=== PATIENT | female | born 1945 | race Caucasian/White ===

== ENCOUNTER 2017-09-15 23:27 | Inpatient (IN) | payer MEDICARE, BC, SELFPAY ==
[2017-09-15 23:40] VITALS: BP 152/88; PULSE 116; RESP 30; TEMP 36.6; O2SAT 96
[2017-09-15] MEDS: methylPREDNISolone 125 MG/2 ML VIAL IV (23:45)
[2017-09-15] MEDS: ALBUTEROL/IPRATROPIUM 3 ML AMPUL INH (23:47)
[2017-09-15 23:49] VITALS: PULSE 115; RESP 26; O2SAT 94
[2017-09-15 23:52] VITALS: PULSE 115; RESP 22
[2017-09-15] MEDS: ALBUTEROL 2.5 MG/3 ML NEB INH ×3 (23:53→23:55)
[2017-09-16] VITALS (14 sets, daily range): BP systolic 96–150; BP diastolic 49–89; PULSE 79–111; RESP 10–40; TEMP 36.8–37.9; O2SAT 91–100; BMI 19.1
--- NOTE | 2017-09-16 | DI.RAD.S_ITS ---
PROCEDURE: XR KUB INDICATIONS: persistent abdominal pain TECHNIQUE: One view of the abdomen acquired. COMPARISON: [facility], CR, XR CHEST 1V, 09/16/2017, 1:11. [facility], CT, CHEST/ABD/PEL WITH CONTRAST, 07/10/2017, 12:55. None. FINDINGS: Surgical changes and devices: None. Bowel: Bowel gas pattern is normal. Soft tissues: No suspicious abdominal calcifications. Visualized solid organ contours appear normal in size. Bones: No suspicious bony lesions. Moderate convex right scoliosis, previously present IMPRESSION: Nonspecific bowel gas pattern. Moderate convex right with scoliosis previously present. Depending on the clinical status followup by CT scanning may become necessary. Dictated by: Adrian Burden M.D. on 09/16/2017 at 10:09 Approved by: Adrian Burden M.D. on 09/16/2017 at 10:09
--- NOTE | 2017-09-16 | PC.NURSE ---
arrives on home o2 at 3l, states worsening soa today without relief from prns and prednisone rx, tight lung sounds throughout, limited air movement, labored resp, tripod position, denies cp/trauma/fever/nausea/vomiting/diarrhea/dysuria or other sx, hx of same r/t COPD per pt, MD galvez present at triage
[2017-09-16 00:13] LABS: Add Manual Diff / Slide Review NO; Basophils Percent Auto 0.5 % (0-2); Hematocrit 36.2 % (36-46); Hemoglobin 12.4 g/dL (12.0-16.0); Lymphocytes Percent Auto 7.6 % (25-40); Mean Corpuscular HGB Conc 34.4 % (30-36); Mean Corpuscular Hemoglobin 32.1 PG (26-34); Mean Corpuscular Volume 93.3 fL (80-100); Monocytes Percent Auto 0.9 % (3-14); Neutrophils Absolute Auto 6500 /uL (3000-5900); Platelet Count 217 X10^3/uL (150-400); Red Blood Cell Count 3.88 X10^6/uL (4.0-5.2); Red Cell Distribution Width 14.9 % (11.6-14.8); White Blood Cell Count 7.2 X10^3/uL (4.5-11.0)
[2017-09-16 00:19] LABS: Blood Urea Nitrogen 12 mg/dL (7-17); Calcium 9.4 mg/dL (8.4-10.2); Carbon Dioxide 28 mmol/L (22-32); Chloride 103 mmol/L (98-107); Creatine Kinase 115 U/L (30-135); Estimated Glomerular Filt Rate > 60.0 mL/min (>60); Glucose 187 mg/dL (80-110); HEMOLYSIS < 15 (0-50); Magnesium 1.8 mg/dL (1.6-2.3); Potassium 4.2 mmol/L (3.4-5.1); Sodium 143 mmol/L (137-145)
[2017-09-16 00:26] LABS: Fractionated Inspired Oxygen 32; HCO3 ABG 27 mmol/L (23-27); Oxygen Saturation ABG 100 % (95-100); PO2 ABG 250 mmHg (80-105); TCO2 ABG 28 mmol/L (23-27); pH ABG 7.36 (7.35-7.45)
[2017-09-16 00:31] LABS: Troponin I < 0.012 ng/mL (0.01-0.034)
[2017-09-16 00:33] LABS: CKMB % Relative Index 2.3 % (1.5-5.0); Creatine Kinase MB 2.63 ng/mL (<2.37)
[2017-09-16 00:35] LABS: Procalcitonin < 0.05 ng/mL (<0.5)
[2017-09-16 00:37] LABS: B Type Natriuretic Peptide 62.5 (<29.3)
[2017-09-16] MEDS: levoFLOXacin 750 MG/150 ML PIGGYBACK 100 MG IV ×2 (00:58→09:46)
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
--- NOTE | 2017-09-16 01:08 | DI.RAD.S_ITS ---
PROCEDURE: XR CHEST 1V INDICATIONS: severe shortness of breath, chronic obstructive pulmonary disease TECHNIQUE: One view of the chest was acquired. COMPARISON: [facility], , CHEST 2 VIEW, 05/09/2017, 18:09. [facility], , CHEST 2 VIEW, 04/17/2017, 15:12. [facility], , CHEST 2 VIEW, 03/02/2017, 13:51. FINDINGS: Surgical changes and devices: None. Lungs and pleura: No pleural effusions or pneumothorax. Lungs are abnormal with large lung volumes consistent with severe COPD.. Mediastinum: Mediastinal contours appear normal. Heart size is normal. Bones and chest wall: No suspicious bony lesions. Overlying soft tissues appear unremarkable. IMPRESSION: Severe COPD, no pneumonia found. Dictated by: Adrian Burden M.D. on 09/16/2017 at 8:41 Approved by: Adrian Burden M.D. on 09/16/2017 at 8:42
[2017-09-16 01:31] LABS: Lactate (Lactic Acid) 3.2 mmol/L (0.7-2.1)
--- NOTE | 2017-09-16 03:56 | PC.NURSE ---
Addendum entered by Snow Henriquez R.N. 09/16/17 07:35: 0600 pt denies pain at this time and hopes to get some rest. Sats on 2L O2 96% and RR is even and labored. Original Note: Addendum entered by Snow Henriquez R.N. 09/16/17 05:46: 0500 Pt awake and needs to void, having increased pain to left breast radiating to her back and abdomen R>L, crying and dyspnic, sats on 3L 94%, RR in the 30's, difficult to console. Offered bedpan and that seemed to upset her more, stating I cannot go on a bedpan, assisted to BSC and pt voided. Once back to bed increased dyspnea, purse lip breathing and difficulty with talking. Requesting an RT treatment. Pt tearful and anxious with mask on. Unable to take PRN Vicodin and now dose Gabapentin due to dyspnea. Pt adamant that she does not want to be on BiPap again. Following breathing treatment, pt able to take meds and resting on 2L o2 with sats 96%. Original Note: Admission shift: 0205 Pt arrived to room 105 from the ER. Pt is arrives and is placed on BiPap by RT but immediately requests that it be removed as she does not tolerate it, requests to be on Nasal Cannula, RT placed pt on 4L O2, pt can only speak 2-3 words due to dyspnea. Tele ST. Once settled and able to rest, RR in the 20's, sats 96-98% on 4L humidified O2. Pt oriented to room and call light.
[2017-09-16] MEDS: GABAPENTIN 300 MG CAPSULE 800 MG PO (05:10)
[2017-09-16] MEDS: HYDROCODONE/ACET 5/325 TABLET 1 TAB PO (05:10)
[2017-09-16 05:12] LABS: Reflexed Lactate in 2 Hours Y
[2017-09-16] MEDS: ALBUTEROL/IPRATROPIUM 3 ML AMPUL INH ×3 (05:33→19:16)
--- NOTE | 2017-09-16 05:36 | RT ---
When assessing Coretta Leal she gets very anxious and becomes very short of breath breathing in mid 20s. Attempted to put patient on BIPAP and patient was on for a few minutes. She asked to be taken off the BIPAP so she could take her pills and requested to be put back on nasal cannual oxygen. Patient does have a productive cough and patient worries about not being able to remove mask to cough up secretions. Instructed patient on purse lip breathing and breathing has calm down will keep BIPAP and HiFLO nasal cannual if need for patient.
[2017-09-16 06:47] LABS: Lactate 2HR (Lactic Acid Rflx) 1.8 mmol/L (0.7-2.1)
--- NOTE | 2017-09-16 08:50 | PM.HP.1 ---
History of Present Illness Date Patient Seen: 09/16/17 Time Patient Seen: 07:45 Chief complaint: Acute Exacerbation of COPD Narrative: The pt is a 71yo woman with COPD on 2L O2 at baseline, pancreatic mass consistent with branched IPMN, positive FIT test, hypothyroidism, anxiety and depression, and postherpetic neuralgia who presented with acute shortness of breath. The pt reports that for the past week she has been feeling increasingly SOB. She was started on Prednisone 20mg as an outpatient. Yesterday morning, the pts home oxygen also stopped working. She used her portable oxygen throughout the day, but continued to have acutely worsening SOB. At the time of presentation in the ED, she was only able to speak in 2 word sentences. She was in a tripod position with pursed lips. The pt does have a cough productive of yellow sputum. She denies any recent fevers or chills. The pt also reports that she recently had her air ducts evaluated at home. They were unable to clean them, as they were too full of a thick, sticky crud. She is concerned this could be contributing to her persistent COPD issues. She is planning to move out of her apartment and in with her sister until she can find alternative housing. The pt is currently undergoing work-up with GI due to persistent abdominal pain and pancreatic mass found on abdominal CT. She does have colonoscopy scheduled for the end of September already. They are currently working on her constipation as a possible cause of her pain. Patient History Medical History History of malignant neoplasm of skin (Inactive 02/10/17) Hyperlipidemia (Chronic 02/10/17) Acquired hypothyroidism (Chronic 02/10/17) Anxiety and depression (Chronic 02/10/17) Postherpetic neuralgia (Chronic 02/10/17) Chronic obstructive pulmonary disease (Chronic 03/12/17) Lung nodule (Chronic 07/11/17) Pancreatic mass (Chronic 07/29/17) History of shingles (Acute) Surgical History History of tonsillectomy Family & Social History Family History: Reviewed 09/16/17 by Josefina Worthington MD Social History: household members none Prior Living Arrangements House Safety & Behavioral: Feels Safe in Current Yes Environment Been Physically Hurt or No Threatened By a Person Suicidal Ideation Description None Suicide Plan Description No Plan Tobacco & Substance use: Tobacco type cigarettes Smoking Status Former smoker alcohol intake current alcohol intake frequency a few times a month Substance Use Type does not use Meds Home Medications Medication Instructions Recorded Confirmed Type gabapentin 800 mg PO TID #0 03/03/17 09/16/17 History ipratropium-albuterol 3 ml INH Q6H PRN #90 u 04/22/17 09/16/17 Rx budesonide 0.5 mg IH BID #1 box 05/26/17 09/16/17 Rx fluticasone-salmeterol [Advair 1 puff INH BID #14 dose 06/06/17 09/16/17 Rx Diskus] lovastatin 20 mg PO HS #90 tab 07/11/17 09/16/17 Rx levothyroxine 150 mcg tablet 150 mcg PO QAM #30 tab 08/15/17 09/16/17 Rx omeprazole 20 mg capsule,delayed 20 mg PO DAILY #30 cap 08/15/17 09/16/17 Rx release polyethylene glycol 3350 17 See Label Instructions PO BID #510 08/15/17 09/16/17 Rx gram/dose oral powder gram hydrocodone 5 mg-acetaminophen 325 See Label Instructions PO Q6HP PRN 09/01/17 09/16/17 Rx mg tablet #45 tab prednisone 20 mg tablet 20 mg PO DAILY #7 tab 09/15/17 09/16/17 Rx Allergies Allergy/AdvReac Type Severity Reaction Status Date / Time Penicillins [PENICILLINS] Allergy Unknown Verified 08/26/17 12:48 Review of Systems Constitutional Constitutional: Reports fatigue, Denies fever(s), Denies headache(s), Reports lack of energy, Reports poor appetite and Reports weight loss ENT Ears, Nose, Mouth, and Throat: No difficulty swallowing, No ear pain, No headache(s) and No nasal congestion Cardiovascular Cardiovascular: Denies chest pain, Denies fast heart rate, Denies rapid, pounding, or irregular heartbeat and Reports shortness of breath Respiratory Respiratory: Reports chest congestion, Reports cough, Reports dyspnea and Reports wheezing Gastrointestinal Gastrointestinal: Reports abdominal pain, Denies melena, Reports constipation, Denies dysphagia, Denies heartburn, Denies nausea and Denies vomiting Genitourinary Genitourinary: Denies hematuria, Denies urinary frequency and Denies difficulty voiding Neurologic Neurologic: Denies headache(s) Endocrine Endocrine: Reports fatigue and Denies palpitations Allergic/Immunologic Allergic/Immunologic: Reports wheezing Exam Vital Signs (past 8 hours): Vital Signs - 8 hr 09/16/17 01:20 09/16/17 01:31 09/16/17 01:49 Temperature Pulse Rate 108 H 111 H Respiratory Rate 16 20 Blood Pressure Blood Pressure [Right Arm] 96/49 L 96/49 L Pulse Oximetry 97 99 100 09/16/17 02:21 09/16/17 05:33 09/16/17 08:42 Temperature 98.8 F 100.2 F H Pulse Rate 108 H 111 H 104 H Respiratory Rate 40 H 25 H 24 Blood Pressure 150/89 H 134/84 H Blood Pressure [Right Arm] Pulse Oximetry 98 98 93 Pulse Oximetry 93 Fraction of Inspired Oxygen 40 Oxygen Delivery Method Nasal Cannula Oxygen Flow Rate 2 Narrative Exam Narrative: GEN - laying comfortably in bed, NC in place, pursed lip breathing, speaking in complete sentences HEENT - normocephalic and atraumatic, sclera white, moist mucus membranes, throat non-erythematous and tonsils not enlarged NECK - FROM, no adenopathy, Thyroid is not enlarged, no JVD HEART - RRR, S1, S2 normal, no S3 or S4, no murmurs LUNGS - symmetric chest rise, mild subcostal retractions, significant wheezing in all lung diez but with severely diminished air movement, no distinct crackles ABD - flat, nondistended, normal bowel sounds, soft, tender to palpation LUQ and RUQ without rebound/guarding/rigidity, no masses, no HSM EXT - no cyanosis, clubbing or edema SKIN - no rashes or suspicious lesions NEURO - no gross deficits Objective Labs Result Diagrams: 09/15/17 23:55 09/15/17 23:55 Labs: Laboratory Results - last 24 hr 09/15/17 09/15/17 09/15/17 23:55 23:55 23:55 WBC 7.2 RBC 3.88 L Hgb 12.4 Hct 36.2 MCV 93.3 MCH 32.1 MCHC 34.4 RDW 14.9 H Plt Count 217 Neut % (Auto) 91.0 H Lymph % (Auto) 7.6 L [place] % (Auto) 0.9 L Eos % (Auto) 0.0 L Baso % (Auto) 0.5 Neut # (Auto) 6500 H ABG pH ABG pCO2 ABG pO2 ABG HCO3 ABG Total CO2 ABG O2 Saturation ABG Base Excess FiO2 Sodium 143 Potassium 4.2 Chloride 103 Carbon Dioxide 28 BUN 12 Creatinine 0.60 Estimated GFR > 60.0 BUN/Creatinine Ratio 20.0 Glucose 187 H Lactate Calcium 9.4 Magnesium 1.8 Total Creatine Kinase 115 CK-MB (CK-2) 2.63 H CK-MB (CK-2) Rel Index 2.3 Troponin I < 0.012 B-Natriuretic Peptide 62.5 Procalcitonin < 0.05 09/16/17 09/16/17 09/16/17 00:11 01:05 06:28 WBC RBC Hgb Hct MCV MCH MCHC RDW Plt Count Neut % (Auto) Lymph % (Auto) [place] % (Auto) Eos % (Auto) Baso % (Auto) Neut # (Auto) ABG pH 7.36 ABG pCO2 48.0 H ABG pO2 250 H ABG HCO3 27 ABG Total CO2 28 H ABG O2 Saturation 100 ABG Base Excess 2.0 FiO2 32 Sodium Potassium Chloride Carbon Dioxide BUN Creatinine Estimated GFR BUN/Creatinine Ratio Glucose Lactate 3.2 H 1.8 Calcium Magnesium Total Creatine Kinase CK-MB (CK-2) CK-MB (CK-2) Rel Index Troponin I B-Natriuretic Peptide Procalcitonin Assessment & Plan (1) Acute exacerbation of chronic obstructive pulmonary disease (COPD): Current visit: Yes Status: Acute (2) Acute respiratory failure with hypoxia: Current visit: Yes Status: Acute (3) Right upper quadrant abdominal pain: Problem details: seeing GI. working on constipation issues. Current visit: Yes Status: Acute (4) Acquired hypothyroidism: Current visit: Yes Status: Chronic (5) Postherpetic neuralgia: Current visit: Yes Status: Chronic Plan: Assessment/Plan Narrative: The pt is a 71yo woman with COPD on 2L O2 at baseline, pancreatic mass consistent with [], positive FIT test, hypothyroidism, anxiety and depression, and postherpetic neuralgia who presented with acute shortness of breath and found to by hypoxic. No evidence of pneumonia on initial CXR, and pt afebrile without significant elevation in WBC count. Temp is to 100.2F this morning, however. Overall most consistent with COPD exacerbation, worsened due to suboptimal oxygen supply at home. 1) COPD exacerbation: Pt not tolerating of BiPAP. Pt now with temperature to 100.2F. If continues to rise, will repeat CXR. - Continue home inhaled budesonide, advair - Methylprednisolone 125mg IV q6hr - Levofloxacin q24hrs - RT consulted, appreciate ongoing care - Duonebs PRN - Ativan PRN to help with anxiety symptoms related to respiratory distress 2) Abdominal pain: Followed by GI, working on constipation currently. Did have positive FIT test earlier this year. - KUB x-ray today (ordered by GI as an outpatient) - Continue outpatient Vicodin PRN - Miralax BID - Docusate daily 3) Hypothyroidism: - Continue home Levothyroxine 4) Postherpetic neuralgia: Left side of chest, shoulder, back - Continue home Gabapentin 800mg TID PRN FEN: General diet DVT prophylaxis: Lovenox Dispo: Pt will require at least 2 additional midnights to allow for improvement in respiratory status. Currently continues to be in distress with increased work of breathing. Time Spent With Patient Time with patient: 25 - 35 minutes
[2017-09-16] MEDS: LEVOTHYROXINE 150 MCG TABLET PO (09:45)
[2017-09-16] MEDS: methylPREDNISolone 125 MG/2 ML VIAL IV ×3 (09:45→20:00)
[2017-09-16] MEDS: ENOXAPARIN 40 MG/0.4 ML SYRINGE SUBCUT (09:45)
[2017-09-16] MEDS: FLUTICASONE/SALMETEROL 250/50 14 PUFF DISKUS INH ×2 (09:46→19:15)
[2017-09-16] MEDS: POLYETHYLENE GLYCOL 3350 17 GM POWD.PACK PO ×2 (09:46→20:00)
[2017-09-16] MEDS: SODIUM CHLORIDE 0.45% 1,000 ML 84 ML IV ×2 (09:47→22:30)
[2017-09-16] MEDS: LORazepam 1 MG TABLET PO ×2 (09:49→17:57)
[2017-09-16] MEDS: GABAPENTIN 400 MG CAPSULE 800 MG PO ×2 (10:07→17:51)
--- NOTE | 2017-09-16 13:30 | PC.NURSE ---
Dayshift Note: Pt received sleeping in bed, on 2 L NC, home dose. Pt with pronounced SOB at rest, pursed-lip breathing and tachypnea at rest. Pt refuses catheter or bed-willard, up to BSC with significant tachypnea. Pt otherwise in bed, A and O x3. Pain from prior shingles out break on L chest skin to back. Given gabapentin with good relief. Pt denies nausea, good appetite. Will continue to monitor, notify MD with changes.
[2017-09-16] MEDS: ALBUTEROL 2.5 MG/3 ML NEB INH (15:15)
[2017-09-16] MEDS: BUDESONIDE 0.5 MG/2 ML NEB INH (15:29)
[2017-09-16] MEDS: LOVASTATIN 20 MG TABLET PO (17:51)
[2017-09-16 19:05] LABS: Bacteria Urine None Seen; RBC Urine None Seen (0-5/HPF); WBC Urine None Seen (0-5/HPF)
[2017-09-16 19:12] LABS: Appearance Urine UA CLEAR; Bilirubin Urine UA NEGATIVE (NEGATIVE); Color Urine UA YELLOW; Glucose Urine UA TRACE g/dL (Normal); Ketones Urine UA NEGATIVE (NEGATIVE); Leukocyte Esterase Urine UA NEGATIVE (NEGATIVE); Nitrite Urine UA Negative (Negative); Occult Blood Urine UA NEGATIVE (Negative); Protein Urine UA NEGATIVE (Negative); Urobilinogen Urine UA 0.2 E.U./dL (0.2); pH Urine UA 7.5 (4.5-8.0)
--- NOTE | 2017-09-16 19:25 | PC.NURSE ---
kevin note pt able to only speak 4-5 words at a time, is using accessory muscles. Lungs are tight with expiratory wheezes. O2 sats 95-96% on 2 L/min cannula. Pt says this is much impoved from earlier. Pt able to set up own dinner tray and eat 75% meal. Pt insists on walking to bathroom to void, no BSC. HR up to 120s with activity.
[2017-09-16 20:04] LABS: Culture Indicated Urine Cult Not Indicated; Urine Comments Microscopic Normal
[2017-09-17] VITALS (11 sets, daily range): BP systolic 112–139; BP diastolic 55–88; PULSE 99–113; RESP 22–32; TEMP 36.6–37.5; O2SAT 93–98
[2017-09-17] MEDS: methylPREDNISolone 125 MG/2 ML VIAL IV ×4 (02:00→20:25)
--- NOTE | 2017-09-17 05:00 | PC.NURSE ---
rn shift mgr: Pt wable to rest well that first half of the shift. At 0400 up to bathroom to void in the bathroom, WOB much less than last night, able to have lengthy conversation when back to bed. Pt is tearful at times discussing her current living situation. Discussed that CM may be into visit with her today and she was grateful for that and any suggestions they may have. Sats on 2L O2 95%. Afebrile.
[2017-09-17 05:28] LABS: Add Manual Diff / Slide Review NO; Hematocrit 32.4 % (36-46); Hemoglobin 10.9 g/dL (12.0-16.0); Lymphocytes Percent Auto 5.8 % (25-40); Mean Corpuscular HGB Conc 33.7 % (30-36); Mean Corpuscular Hemoglobin 31.9 PG (26-34); Mean Corpuscular Volume 94.6 fL (80-100); Monocytes Percent Auto 1.2 % (3-14); Neutrophils Absolute Auto 9300 /uL (3000-5900); Platelet Count 225 X10^3/uL (150-400); Red Blood Cell Count 3.42 X10^6/uL (4.0-5.2); Red Cell Distribution Width 14.9 % (11.6-14.8)
[2017-09-17 05:33] LABS: BUN Creatinine Ratio 25.7 (6-22); Blood Urea Nitrogen 18 mg/dL (7-17); Calcium 8.9 mg/dL (8.4-10.2); Carbon Dioxide 30 mmol/L (22-32); Chloride 103 mmol/L (98-107); Estimated Glomerular Filt Rate > 60.0 mL/min (>60); Glucose 157 mg/dL (80-110); HEMOLYSIS < 15 (0-50); Potassium 4.3 mmol/L (3.4-5.1); Sodium 142 mmol/L (137-145)
[2017-09-17] MEDS: HYDROCODONE/ACET 5/325 TABLET 1 TAB PO ×2 (06:28→15:36)
[2017-09-17] MEDS: LEVOTHYROXINE 150 MCG TABLET PO (06:28)
[2017-09-17] MEDS: BUDESONIDE 0.5 MG/2 ML NEB INH ×2 (07:51→20:00)
[2017-09-17] MEDS: ALBUTEROL/IPRATROPIUM 3 ML AMPUL INH ×4 (07:51→20:00)
[2017-09-17] MEDS: FLUTICASONE/SALMETEROL 250/50 14 PUFF DISKUS INH ×2 (07:53→20:00)
[2017-09-17] MEDS: POLYETHYLENE GLYCOL 3350 17 GM POWD.PACK PO ×2 (09:38→20:25)
[2017-09-17] MEDS: ENOXAPARIN 40 MG/0.4 ML SYRINGE SUBCUT (09:38)
[2017-09-17] MEDS: levoFLOXacin 750 MG/150 ML PIGGYBACK 150 MG IV (09:46)
[2017-09-17] MEDS: LORazepam 1 MG TABLET PO ×2 (12:29→20:25)
--- NOTE | 2017-09-17 13:19 | PC.NURSE ---
Pt has continued with breathing treatments PRN, SOB with any activity, although Pt continues to reassure staff this is a significant improvement. Tearful at times. ABD pain controlled with norco PO. Ativan given for inconsolable crying after conversation with landlord. Pt is unsure what housing situation will be potentially homeless when d/c completed. CM into see Pt @ 1300 with resources. Pt tachy during tearful times. Reassured, emotional support offered.
--- NOTE | 2017-09-17 13:59 | CM.DANOTE ---
Addendum entered by Meg Isaac LPN 09/17/17 14:36: Discussed [address] Booklet for [facility] and encouraged her to call [facility] Aging and Disability Resources [employer] : [phone] to see what services may be available to her. Will take booklet down to her this afternoon. Pt expressed thankfulness for same. Original Note: Addendum entered by Meg Isaac LPN 09/17/17 14:31: P: likely home when stable for same. CM/PANTRY ATTENDANT to see pt tomorrow if possible. Consider referral to a mental health counselor (Payer: Medicare and BCBS out of state [facility]. Original Note: DCP: assessment: Case received, reviewed in morning and met with pt just after lunch after discussion with TEST TECHNICIAN re best time to see her. Introduced self and nurse d/c business continuity planner role. Acknowledged the social service consult and assured pt that she would be seen, likely tomorrow, by an PANTRY ATTENDANT in the CM dept. Pt expressed thankfulness for same. DCP template completed with information available at this point. Pt is a 71 year old female who admitted yesterday to care of PCP: Dr. Worthington and A clinic rounding partners. Pt carries dx of COPD, on home o2 04/11. Dx chronic anxiety and depression. RN Niya notes that pt is easily anxious and upset and HR elevates readily. Pt states [place] at the urging of her sister Kailey Laws (cell [phone]). She says her income is very limited, she is dependent on Kailey in many ways and very much dislikes this. She does not get along with Kailey's boyfriend (who lives with Kailey). Asked about YOHANA. She seemed aware of this, said immediately that she could do every thing for herself expect clean and they don't pay for that. She is hiring her grandniece Johnny to clean for her once she gets home. Pt is easily tearful during assessment, bringing back much of the conversation to her family relationships. She says Dr. Worthington has tried to give her antidepressants but I don't want them. She has not had counseling and encouraged her to discuss same with Dr. Worthington. Pt has no hx of home health services but says she is homebound, relying on family and bus for transports. She says I never leave the house except to sit on the porch and then that depresses me. Pt plans to get on a wait list for affordable housing and hopes to talk with social service worker more about this. Her sister is out of town, arrives late tonight or tomorrow. She plans to ask her if she can stay with her when her lease is up in October (plans not to use her heat until then as that is the source of the poor air quality in her home). She hopes she can find housing herself before then. Encouraged pt to focus on getting medically stable while she is in the ICU. She notes she does not want her feelings toward her sister's boyfriend discussed with her sister but is aware the info she shared will be in the medical records and says is fine with that. She plans to talk with her sister once she arrives.
[2017-09-17] MEDS: GABAPENTIN 400 MG CAPSULE 800 MG PO (15:27)
--- NOTE | 2017-09-17 16:02 | P.PN_ITS ---
Subjective Date Patient Seen: 09/17/17 Time Patient Seen: 07:45 Interval history: The pt reports that she feels improved from yesterday, however still not near to baseline. She was able to ambulate to the bathroom with one break, and catch her breath within a minute after arriving and returning. She feels her cough is more productive, helping to clear her airway. Her abdominal pain has been well controlled while hospitalized. Exam Vital Signs (past 8 hours): Vital Signs - 8 hr 3 09/17/17 12:11 09/17/17 13:05 Temperature 98.3 F Pulse Rate 113 H Respiratory Rate 24 26 H Blood Pressure 118/78 Pulse Oximetry 94 94 Pulse Oximetry 94 Fraction of Inspired Oxygen 28 Oxygen Delivery Method Nasal Cannula Oxygen Flow Rate 2 Narrative Exam Narrative: Gen: NAD, sitting comfortably in bed finishing nebulizer treatment, appears fatigued CV: RRR, no murmurs Resp: improved air movement from yesterday, diffuse inspiratory and expiratory wheezing, no crackles Abd: soft, nontender, normoactive bowel sounds, no masses Ext: no edema Neuro: no gross deficits Objective Labs Result Diagrams: 09/17/17 05:00 09/17/17 05:00 Labs: Laboratory Results - last 24 hr 09/16/17 09/17/17 09/17/17 16:00 05:00 05:00 WBC 10.0 RBC 3.42 L Hgb 10.9 L Hct 32.4 L MCV 94.6 MCH 31.9 MCHC 33.7 RDW 14.9 H Plt Count 225 Neut % (Auto) 93.0 H Lymph % (Auto) 5.[address] [place] % (Auto) 1.2 L Eos % (Auto) 0.0 L Baso % (Auto) 0.0 Neut # (Auto) 9300 H Sodium 142 Potassium 4.3 Chloride 103 Carbon Dioxide 30 BUN 18 H Creatinine 0.70 Estimated GFR > 60.0 BUN/Creatinine Ratio 25.7 H Glucose 157 H Calcium 8.9 Urine Color Yellow Urine Appearance Clear Urine pH 7.5 Ur Specific [place] 1.010 Urine Protein Negative Urine Glucose (UA) Trace Urine Ketones Negative Urine Occult Blood Negative Urine Nitrate Negative Urine Bilirubin Negative Urine Urobilinogen 0.2 Ur Leukocyte Esterase Negative Urine RBC None seen Urine WBC None seen Urine Bacteria None seen Ur Culture Indicated? Cult not indicated Micro UA Comment Microscopic normal Assessment & Plan (1) Acute exacerbation of chronic obstructive pulmonary disease (COPD): Current visit: Yes Status: Acute (2) Acute respiratory failure with hypoxia: Current visit: Yes Status: Acute (3) Right upper quadrant abdominal pain: Problem details: seeing GI. working on constipation issues. Current visit: Yes Status: Acute (4) Acquired hypothyroidism: Current visit: Yes Status: Chronic (5) Postherpetic neuralgia: Current visit: Yes Status: Chronic Plan: Assessment/Plan Narrative: The pt is a 71yo woman with COPD on 2L O2 at baseline, pancreatic mass, positive FIT test, hypothyroidism, anxiety and depression, and postherpetic neuralgia who presented with acute shortness of breath and found to by hypoxic. No evidence of pneumonia on initial CXR, and pt afebrile without significant elevation in WBC count. Overall most consistent with COPD exacerbation, worsened due to suboptimal oxygen supply at home. 1) COPD exacerbation: Very gradual symptomatic improvement. Maintaining oxygen sat reasonably well on 2L O2. Peak flow before nebulizer treatment 80, up to 100 after treatment. - Continue home inhaled budesonide, advair - Methylprednisolone 125mg IV q6hr, consider taper down tomorrow - Levofloxacin q24hrs - RT consulted, appreciate ongoing care - Duonebs PRN - Ativan PRN to help with anxiety symptoms related to respiratory distress - Consider PT consult tomorrow 2) Abdominal pain: Followed by GI, working on constipation currently. Did have positive FIT test earlier this year. KUB requested by GI not remarkable. - Continue outpatient Vicodin PRN - Miralax BID - Docusate daily 3) Hypothyroidism: - Continue home Levothyroxine 4) Postherpetic neuralgia: Left side of chest, shoulder, back - Continue home Gabapentin 800mg TID PRN FEN: General diet DVT prophylaxis: Lovenox Dispo: Pt will require at least 2 additional midnights to allow for improvement in respiratory status. Not yet to baseline, as only able to ambulate a few feet without significant SOB.
[2017-09-17] MEDS: LOVASTATIN 20 MG TABLET PO (17:28)
--- NOTE | 2017-09-17 22:58 | RT ---
@[id number] went into Mrs. Hoffman room to give her a treatment tried to wake her and patient was sleeping.
[2017-09-18] VITALS (9 sets, daily range): BP systolic 103–150; BP diastolic 63–93; PULSE 92–117; RESP 18–24; TEMP 36.4–37.3; O2SAT 92–98
[2017-09-18] MEDS: methylPREDNISolone 125 MG/2 ML VIAL IV (01:54)
[2017-09-18] MEDS: LEVOTHYROXINE 150 MCG TABLET PO (04:58)
[2017-09-18] MEDS: LORazepam 1 MG TABLET PO ×5 (05:03→21:04)
--- NOTE | 2017-09-18 05:09 | PC.NURSE ---
Addendum entered by Ira Islas R.N. 09/18/17 06:11: Called to room. Pt tearful stating I'm very anxious and depressed. Support given, asked what staff can do to offer comfort. Reports pain from previous shingles to back. Medicated per orders and assisted to position for comfort. Original Note: Pt up to BR using FWW with SBA. Noted pursed lip breathing. Sp02 maintained > 93% with activity on 2LNC. Pt reports her breathing is actually better than her more recent baseline stating I've been doing pretty poorly for awhile now. Reports that she usually needs to take a break in order to walk to the bathroom as far as she did. Increased WOB after ambulation but with a quick recovery ( < 30 seconds) without desaturations. Ativan given for her nerves and to help me sleep more.
[2017-09-18] MEDS: HYDROCODONE/ACET 5/325 TABLET 1 TAB PO (06:09)
[2017-09-18] MEDS: ALBUTEROL/IPRATROPIUM 3 ML AMPUL INH ×4 (08:17→20:06)
[2017-09-18] MEDS: BUDESONIDE 0.5 MG/2 ML NEB INH ×2 (08:19→20:06)
[2017-09-18] MEDS: FLUTICASONE/SALMETEROL 250/50 14 PUFF DISKUS INH ×2 (08:20→20:06)
[2017-09-18] MEDS: methylPREDNISolone 125 MG/2 ML VIAL 60 MG IV ×2 (09:10→17:25)
[2017-09-18] MEDS: POLYETHYLENE GLYCOL 3350 17 GM POWD.PACK PO ×2 (09:11→21:04)
[2017-09-18] MEDS: ENOXAPARIN 40 MG/0.4 ML SYRINGE SUBCUT (09:11)
[2017-09-18] MEDS: GABAPENTIN 400 MG CAPSULE 800 MG PO ×2 (09:12→16:15)
[2017-09-18] MEDS: levoFLOXacin 750 MG/150 ML PIGGYBACK 100 MG IV (09:15)
--- NOTE | 2017-09-18 09:28 | P.PN_ITS ---
Subjective Date Patient Seen: 09/18/17 Time Patient Seen: 08:00 Interval history: Patient reports her breathing is significantly improved today. She has been able to ambulate to the bathroom more easily. She can walk in with the assistance of a walker, without any breaks. She has not tried to ambulate any further than this so far. She continues to have a mildly productive cough, and states that the nebulizer treatments are helping to clear her airway. This morning, patient is very tearful when discussing her home situation. She is hopeful that she will qualify for low income housing in the her niece can stay with her to help with her care. She feels that her sister thinks of her as a burden, and does not want a place anymore care needs on her. Exam Vital Signs (past 8 hours): Vital Signs - 8 hr 3 09/18/17 05:09 09/18/17 08:22 Temperature 97.9 F Pulse Rate 99 H 101 H Respiratory Rate 22 22 Blood Pressure 149/93 H Pulse Oximetry 96 97 Pulse Oximetry 97 Fraction of Inspired Oxygen 28 Oxygen Delivery Method Nasal Cannula Oxygen Flow Rate 2 Narrative Exam Narrative: Gen: NAD, sitting comfortably in bed finishing nebulizer treatment, appears fatigued CV: RRR, no murmurs Resp: improved air movement from yesterday, diffuse inspiratory and expiratory wheezing improved from yesterday as well, no crackles Abd: soft, nontender, normoactive bowel sounds, no masses Ext: no edema Neuro: no gross deficits Objective Labs Result Diagrams: 09/17/17 05:00 09/17/17 05:00 Assessment & Plan (1) Acute exacerbation of chronic obstructive pulmonary disease (COPD): Current visit: Yes Status: Acute (2) Acute respiratory failure with hypoxia: Current visit: Yes Status: Acute (3) Right upper quadrant abdominal pain: Problem details: seeing GI. working on constipation issues. Current visit: Yes Status: Acute (4) Acquired hypothyroidism: Current visit: Yes Status: Chronic (5) Postherpetic neuralgia: Current visit: Yes Status: Chronic Plan: Assessment/Plan Narrative: The pt is a 71yo woman with COPD on 2L O2 at baseline, pancreatic mass, positive FIT test, hypothyroidism, anxiety and depression, and postherpetic neuralgia who presented with acute shortness of breath and found to by hypoxic. No evidence of pneumonia on initial CXR, and pt afebrile without significant elevation in WBC count. Overall most consistent with COPD exacerbation, worsened due to suboptimal oxygen supply at home. 1) COPD exacerbation: Continued gradual symptomatic improvement. Maintaining oxygen sat well on 2L O2. - Continue home inhaled budesonide, advair - Decrease to Methylprednisolone 60mg IV q8hr - Levofloxacin q24hrs - RT consulted, appreciate ongoing care - Duonebs PRN - Ativan PRN to help with anxiety symptoms related to respiratory distress - PT consult today 2) Abdominal pain: Followed by GI, working on constipation currently. Did have positive FIT test earlier this year. KUB requested by GI not remarkable. - Continue outpatient Vicodin PRN - Miralax BID - Docusate daily 3) Hypothyroidism: - Continue home Levothyroxine 4) Postherpetic neuralgia: Left side of chest, shoulder, back - Continue home Gabapentin 800mg TID PRN FEN: General diet DVT prophylaxis: Lovenox Dispo: Pt will require at least 2 additional midnights to allow for improvement in respiratory status, taper off IV steroids to PO. Pt may require brief stay in SNF. Discussed this with her today. She is agreeable to short stay, not long-term. Hoping to get low-income housing, and have her niece stay with her to help with her care, cooking, cleaning, etc.
--- NOTE | 2017-09-18 10:01 | CM.DPC ---
DCP Cont: Per RN, pt stable enough to move from ICU up to the Acute Medical Floor sometime today and pt has continued to be tearful overnight and this morning but has an appetite now. CHUCKY met bedside with pt and explained role and SW inquired about the resources provided at last admit regarding transportation and pt states she had been able to set up transport but recently has become much weaker and painful that she cannot make it to the bus stop and therefore is back to relying on her sister for transport. Pt states her very supportive niece has been bedside and is willing to follow up on the phone calls for housing resources that the pt highlighted in the Senior Resource Guidebook and niece would be willing to help pt with applications and other needs. Pt states that her sister currently is declining to have the pt stay with her for either temporary housing or prison. SW provided the pt with the Medicaid application to complete with her niece towards determining if she qualifies for Medicaid towards support with caregivers/housing/etc.. SW also provided further [facility] resources and encouraged pt to complete housing applications dev as well with niece support. SW talked further with the pt regarding her concerns, fears, depression, anxiety and provided a list of local [place] [employer] contracted mental health counselors and encouraged the pt to seek additional support during this stressful time and pt was appreciative. Plan: SW to follow closely to determine if pt has further medical/discharge planning needs and possible d/c back home with niece support until pt can secure different housing. Pt has housing resources, mental health resources, and Medicaid application that niece plans to support the pt in completing. ARNOLD Espinoza
--- NOTE | 2017-09-18 11:29 | PC.NURSE ---
pt being transfered to 217. report given to robert MENJIVAR. pt alert and oriented.
--- NOTE | 2017-09-18 12:12 | PC.NURSE ---
Pt recieved from ICU transfer at approx. 12:00 to room 217. She has been oriented to the room and served lunch.
--- NOTE | 2017-09-18 13:45 | PT.IPTN ---
Received PT eval order this morning but pt currently has a bed rest order. informed nurse that status needs to be changed. Checked on pt's status and pt is still on bed rest.
--- NOTE | 2017-09-18 16:39 | PT.IPTN ---
talked to nurse regarding bed rest order again and stated that she has to call Dr. Worthington. Called Dr. Worthington's office and talked to Yanci regarding situation and stated that she will let Dr. Worthington as the doctor is out of the office. Informed that PT cannot do evaluation with a bed rest order. will f/u tomorrow.
[2017-09-18] MEDS: LOVASTATIN 20 MG TABLET PO (17:13)
[2017-09-19] VITALS (19 sets, daily range): BP systolic 113–159; BP diastolic 66–96; PULSE 94–109; RESP 14–20; TEMP 36.3–37.6; O2SAT 90–98
[2017-09-19] MEDS: methylPREDNISolone 125 MG/2 ML VIAL 60 MG IV ×2 (00:34→08:43)
[2017-09-19] MEDS: GABAPENTIN 400 MG CAPSULE 800 MG PO ×3 (04:31→20:11)
[2017-09-19] MEDS: LORazepam 1 MG TABLET PO ×3 (04:33→20:10)
[2017-09-19] MEDS: ALBUTEROL 2.5 MG/3 ML NEB INH (04:39)
--- NOTE | 2017-09-19 04:47 | PC.NURSE ---
NOC Note: Pt denied pain during assessment but wake at 0420 reporting that she had a bad dream. Stating that the dream was about a little girl being killed. Pt was very anxious and reported her pain to be 8/10. PRN ativan and PRN gabapentin given. Pt also requested a PRN neb tx for SOB. Pt appeared to have slept soundly prior to bad dream. Pt is using the call light and making needs known.
[2017-09-19] MEDS: levoFLOXacin 750 MG/150 ML PIGGYBACK 100 MG IV (08:34)
[2017-09-19] MEDS: ENOXAPARIN 40 MG/0.4 ML SYRINGE SUBCUT (08:35)
[2017-09-19] MEDS: POLYETHYLENE GLYCOL 3350 17 GM POWD.PACK PO (08:35)
[2017-09-19] MEDS: LEVOTHYROXINE 150 MCG TABLET PO (08:35)
[2017-09-19] MEDS: HYDROCODONE/ACET 5/325 TABLET 1 TAB PO ×2 (08:39→20:17)
[2017-09-19] MEDS: ALBUTEROL/IPRATROPIUM 3 ML AMPUL INH ×3 (09:16→18:53)
[2017-09-19] MEDS: FLUTICASONE/SALMETEROL 250/50 14 PUFF DISKUS INH ×2 (09:16→18:53)
[2017-09-19] MEDS: BUDESONIDE 0.5 MG/2 ML NEB INH ×2 (09:16→18:53)
--- NOTE | 2017-09-19 10:55 | PC.NURSE ---
Addendum entered by Audrey Delatorre R.N. 09/19/17 14:17: abd pain - discussed pain mgt for l quad discomfort, given 800mg gabapentin, pt req shower and feed grinder in to assist. Original Note: AM NOTE - pt awakened when Dr. Worthington in and quite tearful, anxious, states had bad dream during night, crying and whimper during conversation with RN, then able sit up for breakfast, taking a few bites, chronic abd discomfort 6 on scale 0/10, declines ensure, given norco 5/325 x 1 tab for discomfort 6 on scale 0/10, sob w/speech or activity, RT in this am and tmt provided, 3l 94%, later PT in and pt able to mobilize, states pain improved after earler medication, to sink and adls done, to chair w/alarm set, later prior to lunch req back to bed for nap, calmer and no longer tearful.
--- NOTE | 2017-09-19 11:59 | PT.IIE ---
Current Diagnoses Other postherpetic nervous system involvement (09/16/17) Hypothyroidism, unspecified (09/16/17) Chronic obstructive pulmonary disease with (acute) exacerbation (09/16/17) Acute respiratory failure with hypoxia (09/16/17) Right upper quadrant pain (09/16/17) Surgical History (Last Reviewed 08/16/17 @ 15:13 by Josefina Worthington MD) History of tonsillectomy Medical History (Last Reviewed 09/16/17 @ 11:15 by Josefina Worthington MD) History of malignant neoplasm of skin (Inactive 02/10/17) Hyperlipidemia (Chronic 02/10/17) Acquired hypothyroidism (Chronic 02/10/17) Anxiety and depression (Chronic 02/10/17) Postherpetic neuralgia (Chronic 02/10/17) Chronic obstructive pulmonary disease (Chronic 03/12/17) Lung nodule (Chronic 07/11/17) Pancreatic mass (Chronic 07/29/17) History of shingles (Acute) Physical Therapy Inpatient Evaluation/Re-Eval M1 PT/OT-IP Prior Functional Status Start: 09/19/17 11:31 Freq: NEEDED Status: Active Protocol: Document 09/19/17 11:31 AB (Rec: 09/19/17 11:59 AB [id number]) Medical Review Prior Functional Status Medical History Reviewed Yes Diet/Fluid Consistency Regular Mobility and Gait pt stated that she is modified independent with mobility and ambulation without AD. Prior Functional Level (Other details) pt has her sister and niece assist her with house chores but pt not needing physical assistance. pt uses O2 24/7 Social History Household Members none Living Arrangements House Number of Floors (Floors) One Floor Number of Stairs To Enter/Railing? 4 steps with bilateral wide rails and can only hold on to one rail at a time. Home Environment Standard Height Toilet Tub/Shower Home Equipment Hand Held Shower Grab Bars In Shower Employment Status Retired Additional Social History Comment pt stated she has a makeshift shower stool (a parr's stool that folds/opens up). stated that it works for her. M2 PT-IP Current Condition Start: 09/19/17 11:31 Freq: NEEDED Status: Active Protocol: Document 09/19/17 11:31 AB (Rec: 09/19/17 11:59 AB [id number]) Physical Therapy Current Condition Current Condition Evaluation Date 09/19/17 Treatment Diagnosis COPD exacerbation Onset Date 09/16/17 Precautions Other Precautions O2 sat M3 PT-IP Subjective Start: 09/19/17 11:31 Freq: NEEDED Status: Active Protocol: Document 09/19/17 11:31 AB (Rec: 09/19/17 11:59 AB [id number]) Subjective Physical Therapy Visit Type Type Initial Evaluation Visit Start Time 09:45 Visit Stop Time 10:25 Total Visit Minutes 40 Number of OPTIC FIBRE DRAWER Visits 0 Physical Therapy Visit Comments Patient Comments pt agreeable to do therapy Therapy Pain Assessment Pain Present Pain Present Denied Pain M4 PT-IP Mobility and Gait Start: 09/19/17 11:31 Freq: NEEDED Status: Active Protocol: Document 09/19/17 11:31 AB (Rec: 09/19/17 11:59 AB [id number]) PT-Bed Mobility Assessment Supine to Sit Supine to Sit Standby Assistance Sit to Supine Sit to Supine Standby Assistance PT-Transfer Assessment Sit to and From Stand Sit to and from Stand Contact Guard Assistance Equipment Transfer Assistive Device Bed Rail Front Wheeled Walker Transfers Transfer Destination Toilet Gait Assessment Gait Gait Assistance Required: Contact Guard Assist Distance (Feet) (feet) 15 Able to Maintain Weight Bearing Status Yes During Gait Assistive Devices Assistive Device Gait Belt Front Wheeled Walker Orthotic/Prosthetic Devices or Brace: No Gait Deviations General Gait Pattern Decreased Stride Length Factors Limiting Gait Function Factors Limiting Gait Function Decreased Activity Tolerance Decreased Strength Respiratory Distress Comments Gait Comments pt ambulated from the toilet using FWW CGA towards the sink ~ 15 ft and was able to maintain standing leaning on counter CGA while completing handwashing and brushing her teeth. pt ambulated to the chair using FWW CGA ~ 10 ft and agreed to sit up on chair. positioned pt on chair. call light and table placed within reach. PT-Balance Assessment Sitting Balance and Reactions Static Sitting Balance Ability Good Dynamic Sitting Balance Ability Good Standing Balance and Reactions Static Standing Balance Ability Fair Dynamic Standing Balance Ability Fair M5 PT-IP Objective Assessments Start: 09/19/17 11:31 Freq: NEEDED Status: Active Protocol: Document 09/19/17 11:31 AB (Rec: 09/19/17 11:59 AB [id number]) Orientation Orientation/Cognition Level of Alertness Alert Orientation Name Age Place Situation Safety Awareness Decreased Safety Awareness Strength Lower Extremity Strength Assessment Bilaterally Impaired M6 PT-IP Treatment Start: 09/19/17 11:31 Freq: NEEDED Status: Active Protocol: Document 09/19/17 11:31 AB (Rec: 09/19/17 11:59 AB [id number]) Physical Therapy Treatment Education Education Provided Safety M7 PT-IP Assessment and Plan Start: 09/19/17 11:31 Freq: NEEDED Status: Active Protocol: Document 09/19/17 11:31 AB (Rec: 09/19/17 11:59 AB [id number]) PT Summary Assessment and Plan Potential Rehabilitation Potential Fair Status of Condition at Evaluation Evolving Summary Impairments ROM Strength Balance Cognition Bed Mobility Transfers Gait Activity Tolerance Assessment Summary pt requiring CGA with mobility . pt with decrease activity tolerance affecting mobility. pt stated that she was scheduled to have cardiopulmonary rehab but has other medical appointments in between and has to call them back to set up another schedule. pt will need assist at home and homehealth services. Goals Bed Mobility Goal Independent Transfer Goal Independent Gait Goal Independent Gait Distance 100 Other Goals up/down 4 steps with one rail SBA Days to Meet Goals 3 Frequency of Treatment Frequency Of Treatment Twice a Day Treatment Plan Physical Therapy Treatment Plan Bed Mobility Training Transfer Training Gait Training Therapeutic Exercise Balance Retraining Post Op Education Discharge Planning Neuromuscular Re-ed Recommendations To Nursing Amount of Assist Needed 1 Person Assist Discharge Recommendations PT Discharge Recommendations Home with Assistance Home Health Other Discharge Recommendations pt will eventually benefit from cardiopulmonary rehab Equipment Needed for Home Before possible FWW depending on Discharge progress Provider Visit Care Team Role Provider Type Luis Issa DO Emergency Provider Physician Specialty: Emergency Medicine Josefina Worthington MD Admit Provider Physician Attending Provider Primary Care Provider Specialty: Family Practice
--- NOTE | 2017-09-19 13:11 | P.PN_ITS ---
Subjective Date Patient Seen: 09/19/17 Time Patient Seen: 08:15 Interval history: The patient reports that her respiratory status continues to improve. She is anxious to work with physical therapy today. She continues to be willing to discharge to SNF for brief period of time, but does not wish to stay in a living facility long-term at this point. She reports having a nightmare last night that a baby was being murdered. She states she frequently has nightmares in the evening. As per nursing, the patient will for anxious overnight due to her nightmare. They are concerned that her anxiety is worsening her respiratory status as she is frequently quite tachypneic when her anxiety flares. Exam Vital Signs (past 8 hours): Vital Signs - 8 hr 3 09/19/17 05:03 09/19/17 05:11 Temperature 97.8 F Pulse Rate 94 H Respiratory Rate 20 Blood Pressure 153/96 H Pulse Oximetry 93 93 Pulse Oximetry 93 Fraction of Inspired Oxygen 28 Oxygen Delivery Method Nasal Cannula Oxygen Flow Rate 2 Narrative Exam Narrative: Gen: NAD, laying comfortably in bed, tearful discussing nightmare from over the night CV: RRR, no murmurs Resp: stable air movement from yesterday, diffuse inspiratory and expiratory wheezing improved, no crackles Abd: soft, nontender, normoactive bowel sounds, no masses Ext: no edema Neuro: no gross deficits Objective Labs Result Diagrams: 09/17/17 05:00 09/17/17 05:00 Assessment & Plan (1) Acute exacerbation of chronic obstructive pulmonary disease (COPD): Current visit: Yes Status: Acute (2) Acute respiratory failure with hypoxia: Current visit: Yes Status: Acute (3) Right upper quadrant abdominal pain: Problem details: seeing GI. working on constipation issues. Current visit: Yes Status: Acute (4) Acquired hypothyroidism: Current visit: Yes Status: Chronic (5) Postherpetic neuralgia: Current visit: Yes Status: Chronic (6) Anxiety and depression: Current visit: No Status: Chronic Plan: Assessment/Plan Narrative: The pt is a 71yo woman with COPD on 2L O2 at baseline, pancreatic mass, positive FIT test, hypothyroidism, anxiety and depression, and postherpetic neuralgia who presented with acute shortness of breath and found to by hypoxic. No evidence of pneumonia on initial CXR, and pt afebrile without significant elevation in WBC count. Overall most consistent with COPD exacerbation, worsened due to suboptimal oxygen supply at home. 1) COPD exacerbation: Continued symptomatic improvement. Maintaining oxygen sat well on 2-3L O2. - Continue home inhaled budesonide, advair - Decrease to Methylprednisolone 60mg IV daily, transition to PO tomorrow - Levofloxacin q24hrs - RT consulted, appreciate ongoing care - Duonebs PRN - PT consulted 2) Abdominal pain: Followed by GI, working on constipation currently. Did have positive FIT test earlier this year. KUB requested by GI not remarkable. - Continue outpatient Vicodin PRN - Miralax BID - Docusate daily 3) Hypothyroidism: - Continue home Levothyroxine 4) Postherpetic neuralgia: Left side of chest, shoulder, back - Continue home Gabapentin 800mg TID PRN 5) Anxiety: Pt with increasing anxiety symptoms. Does affect respiratory status. Pt has declined long-acting anxiety medication in the past (such as SSRI) - Continue Ativan PRN - Will continue discussion regarding anxiolytics FEN: General diet DVT prophylaxis: Lovenox Dispo: Transition to PO steroids tomorrow. Possible d/c tomorrow or Friday. Believe pt would benefit from brief stay in SNF to ensure continued respiratory improvement, and to help regain additional strength prior to d/c home. At home , will require assistance with iADLs.
--- NOTE | 2017-09-19 15:07 | CM.DPNOTE ---
Per MD: Patient may benefit from SNF. Spoke with patient: Patient states her niece came into hospital for visit today and agreed to stay with patient as long as needed to care for patient. This is a temporary plan but a plan patient states can become permanent if needed as patient does have an additional bedroom. Patient was very upbeat and excited about returning home with care. Patient requested SW call MD to ask if she can discharge home today. Spoke with Dr. Worthington: Patient can transition to PO steroids tomorrow and possibly discharge home. SW requested patient be referred to Care Coordination for OP CM needs. Plan: Patient to discharge home with supportive neice. CM team to follow as needed.
--- NOTE | 2017-09-19 15:39 | PT.IPTN ---
Current Diagnoses Other postherpetic nervous system involvement (09/16/17) Hypothyroidism, unspecified (09/16/17) Major depressive disorder, single episode, unspecified (09/16/17) Anxiety disorder, unspecified (09/16/17) Chronic obstructive pulmonary disease with (acute) exacerbation (09/16/17) Acute respiratory failure with hypoxia (09/16/17) Right upper quadrant pain (09/16/17) Physical Therapy Treatment Note M2 PT-IP Current Condition Start: 09/19/17 11:31 Freq: NEEDED Status: Active Protocol: Document 09/19/17 11:31 AB (Rec: 09/19/17 11:59 AB [id number]) Physical Therapy Current Condition Current Condition Evaluation Date 09/19/17 Treatment Diagnosis COPD exacerbation Onset Date 09/16/17 Precautions Other Precautions O2 sat M3 PT-IP Subjective Start: 09/19/17 11:31 Freq: NEEDED Status: Active Protocol: Document 09/19/17 15:24 AB (Rec: 09/19/17 15:39 AB [id number]) Subjective Physical Therapy Visit Type Type Treatment Note Visit Start Time 15:07 Visit Stop Time 15:23 Total Visit Minutes 16 Number of METALLOGRAPHY TEACHER Visits 0 Physical Therapy Visit Comments Patient Comments pt agreeable to do therapy and wants to go back to bed afterwards. Therapy Pain Assessment Pain Present Pain Present Denied Pain M4 PT-IP Mobility and Gait Start: 09/19/17 11:31 Freq: NEEDED Status: Active Protocol: Document 09/19/17 15:24 AB (Rec: 09/19/17 15:39 AB [id number]) PT-Bed Mobility Assessment Sit to Supine Sit to Supine Standby Assistance PT-Transfer Assessment Sit to and From Stand Sit to and from Stand Standby Assistance Gait Assessment Gait Gait Assistance Required: Contact Guard Assist Distance (Feet) (feet) 75 Able to Maintain Weight Bearing Status Yes During Gait Assistive Devices Assistive Device Gait Belt Front Wheeled Walker Orthotic/Prosthetic Devices or Brace: No Gait Deviations General Gait Pattern Decreased Stride Length Factors Limiting Gait Function Factors Limiting Gait Function Decreased Activity Tolerance Decreased Strength Poor Safety Awareness Respiratory Distress Comments Gait Comments O2 sat maintained at 94-95% with activity using 2L/min O2 M5 PT-IP Objective Assessments Start: 09/19/17 11:31 Freq: NEEDED Status: Active Protocol: Document 09/19/17 11:31 AB (Rec: 09/19/17 11:59 AB [id number]) Orientation Orientation/Cognition Level of Alertness Alert Orientation Name Age Place Situation Safety Awareness Decreased Safety Awareness Strength Lower Extremity Strength Assessment Bilaterally Impaired M6 PT-IP Treatment Start: 09/19/17 11:31 Freq: NEEDED Status: Active Protocol: Document 09/19/17 11:31 AB (Rec: 09/19/17 11:59 AB [id number]) Physical Therapy Treatment Education Education Provided Safety M7 PT-IP Assessment and Plan Start: 09/19/17 11:31 Freq: NEEDED Status: Active Protocol: Document 09/19/17 15:24 AB (Rec: 09/19/17 15:39 AB [id number]) PT Summary Assessment and Plan Potential Rehabilitation Potential Fair Summary Impairments Strength Balance Bed Mobility Transfers Gait Activity Tolerance Progress Towards Goals Slow Progress due to Activity Tolerance Assessment Summary pt progressing slowly but continues to have decrease activity tolerance affecting mobility. Goals Bed Mobility Goal Independent Transfer Goal Independent Gait Goal Independent Gait Distance 100 Other Goals up/down 4 steps with one rail SBA Days to Meet Goals 3 Frequency of Treatment Frequency Of Treatment Twice a Day Treatment Plan Physical Therapy Treatment Plan Bed Mobility Training Transfer Training Gait Training Therapeutic Exercise Balance Retraining Post Op Education Discharge Planning Neuromuscular Re-ed Recommendations To Nursing Amount of Assist Needed 1 Person Assist Discharge Recommendations PT Discharge Recommendations Home with Assistance Home Health Other Discharge Recommendations pt will eventually benefit from cardiopulmonary rehab Equipment Needed for Home Before possible FWW depending on Discharge progress
[2017-09-19] MEDS: LOVASTATIN 20 MG TABLET PO (16:05)
[2017-09-20] MEDS: HYDROCODONE/ACET 5/325 TABLET 1 TAB PO (01:55)
[2017-09-20] MEDS: ALBUTEROL/IPRATROPIUM 3 ML AMPUL INH ×2 (02:10→08:19)
[2017-09-20 02:13] VITALS: PULSE 102; RESP 20; O2SAT 93
[2017-09-20] MEDS: GABAPENTIN 400 MG CAPSULE 800 MG PO (02:31)
[2017-09-20] MEDS: LORazepam 1 MG TABLET PO (02:31)
[2017-09-20 05:35] VITALS: BP 100/63; PULSE 88; RESP 16; TEMP 36.5; O2SAT 97
[2017-09-20] MEDS: LEVOTHYROXINE 150 MCG TABLET PO (06:47)
[2017-09-20 08:15] VITALS: BP 135/89; PULSE 97; RESP 16; TEMP 36.1; O2SAT 98
[2017-09-20] MEDS: BUDESONIDE 0.5 MG/2 ML NEB INH (08:19)
[2017-09-20] MEDS: FLUTICASONE/SALMETEROL 250/50 14 PUFF DISKUS INH (08:20)
[2017-09-20] MEDS: ENOXAPARIN 40 MG/0.4 ML SYRINGE SUBCUT (09:00)
[2017-09-20 09:04] VITALS: O2SAT 96
[2017-09-20] MEDS: predniSONE 20 MG TABLET 60 MG PO (09:17)
[2017-09-20] MEDS: FLUoxetine 20 MG CAPSULE PO (09:17)
[2017-09-20] MEDS: levoFLOXacin 750 MG/150 ML PIGGYBACK 100 MG IV (09:17)
--- NOTE | 2017-09-20 09:48 | P.DS_ITS ---
History of Present Illness Date Patient Seen: 09/20/17 Time Patient Seen: 09:00 Chief complaint: Acute Exacerbation of COPD Narrative: From Dr. Worthington's H&P: Pt is a 71yo woman with COPD on 2L O2 at baseline, pancreatic mass consistent with branched IPMN, positive FIT test, hypothyroidism, anxiety and depression, and postherpetic neuralgia who presented with acute shortness of breath. The pt reports that for the past week she has been feeling increasingly SOB. She was started on Prednisone 20mg as an outpatient. Yesterday morning, the pts home oxygen also stopped working. She used her portable oxygen throughout the day, but continued to have acutely worsening SOB. At the time of presentation in the ED, she was only able to speak in 2 word sentences. She was in a tripod position with pursed lips. The pt does have a cough productive of yellow sputum. She denies any recent fevers or chills. The pt also reports that she recently had her air ducts evaluated at home. They were unable to clean them, as they were too full of a thick, sticky crud. She is concerned this could be contributing to her persistent COPD issues. She is planning to move out of her apartment and in with her sister until she can find alternative housing. The pt is currently undergoing work-up with GI due to persistent abdominal pain and pancreatic mass found on abdominal CT. She does have colonoscopy scheduled for the end of September already. They are currently working on her constipation as a possible cause of her pain. Discharge Providers Date of admission: 09/16/17 01:52 Primary care physician: Josefina Worthington MD Consults: 09/15/17 23:41 Consult to Respiratory Therapy Evaluate & Treat Comment: Physician Instructions: Evaluate and treat 09/17/17 08:20 Consult to [employer] In[employer] Routine Comment: for assistance with housing issues 09/18/17 09:47 Consult to Physical Therapy Evaluate & Treat Comment: Physician Instructions: Evaluate and Treat Discharge provider: Orin Dacosta DO Summary Discharge Diagnosis: Acute COPD exacerbation Chronic respiratory failure on supplemental oxygen Abdominal pain Pancreatic mass Post herpetic neuralgia Anxiety and depression Hospital Course: Acute COPD exacerbation: Patient was treated for several days with IV steroids , supplemental oxygen, scheduled and prn respiratory treatments and antibiotics. She improved slowly over her hospitalization and was able to wean to her usual 2 L of supplemental oxygen. She remained short of breath with wheezing which apparently is her baseline. She is scheduled to see pulmonology in October. Day of discharge she was feeling well enough to go home and requesting to go home. She will discharge with a steroid taper but completed a full course of antibiotics while in the hospital. Recommended continued regular use of nebulizers at home for the next several days. Abdominal pain with known pancreatic mass and positive fit test: Working with GI as an outpatient. Scheduled for colonoscopy. Patient did complain of ongoing abdominal pain while in the hospital with intermittent vomiting. Day of discharge she was tolerating oral intake and again, very eager to go home. She was continued on her usual omeprazole and a refill given on discharge. Also received her usual hydrocodone. Anxiety and depression: Patient was started on fluoxetine by her PCP in the hospital. She was given a new prescription upon discharge. Anxiety negatively impacts her breathing. In the hospital she received lorazepam with notable improvement in anxiety and respiratory status. Post herpetic neuralgia: Received her usual gabapentin. Hypothyroidism: Received her usual levothyroxine. There was some discussion of discharge to half-way however patient felt strongly about returning home with caregiver support from her niece. Patient and family are working on cleaning up the ventilation system in her house and are well aware of the negative affects on her COPD. Ultimately the patient states she will likely move. Patient is to follow-up with Dr. Worthington in two weeks. She has an appointment scheduled on October 08. Status at Discharge Functional status at discharge: independent ambulation Overall status at discharge: patient is back to baseline Time Spent with Patient Greater than 30 minutes Exam Vital Signs (past 8 hours): Vital Signs - 8 hr 3 09/20/17 02:13 09/20/17 05:35 09/20/17 08:15 Temperature 97.7 F 97.0 F L Pulse Rate 102 H 88 97 H Respiratory Rate 20 16 16 Blood Pressure 100/63 135/89 H Pulse Oximetry 93 97 98 3 09/20/17 09:04 Temperature Pulse Rate Respiratory Rate Blood Pressure Pulse Oximetry 96 Pulse Oximetry 96 Fraction of Inspired Oxygen 28 Oxygen Delivery Method Nasal Cannula Oxygen Flow Rate 2 General: Chronically ill-appearing woman. Speaks in full sentences but must pause at times to catch her breath. HEENT: NCAT, EOMI, moist oral mucosa. Nasal cannula in place. CV: Regular rate and rhythm, no murmurs, rubs or gallops Lungs: Decreased breath sounds bilaterally with expiratory wheezes throughout Abdomen: Soft, bowel tones active. Diffusely tender throughout. Extremities: Warm, no edema, 2+ pedal pulses bilaterally Objective Imaging Abdominal x-ray: Radiologist's impression: IMPRESSION: Nonspecific bowel gas pattern. Moderate convex right with scoliosis previously present. Depending on the clinical status followup by CT scanning may become necessary. Dictated by: Adrian Burden M.D. on 09/16/2017 at 10:09 Approved by: Adrian Burden M.D. on 09/16/2017 at 10:09 Chest x-ray: Radiologist's impression: IMPRESSION: Severe COPD, no pneumonia found. Dictated by: Adrian Burden M.D. on 09/16/2017 at 8:41 Approved by: Adrian Burden M.D. on 09/16/2017 at 8:42 Labs Result Diagrams: 09/17/17 05:00 09/17/17 05:00 Discharge Plan Discharge Plan Patient Disposition: Home, Self-Care Provider Discharge Instructions Diet: Diet as Tolerated Discharge Data Primary Care Provider: Josefina Worthington Attending Provider: Josefina Worthington Admit Date/Time: 09/16/17 01:52 Discharges patient from system. Discharge Date/Time: 09/20/17 11:55
--- NOTE | 2017-09-20 11:31 | PT.IPTN ---
Current Diagnoses Other postherpetic nervous system involvement (09/16/17) Hypothyroidism, unspecified (09/16/17) Major depressive disorder, single episode, unspecified (09/16/17) Anxiety disorder, unspecified (09/16/17) Chronic obstructive pulmonary disease with (acute) exacerbation (09/16/17) Acute respiratory failure with hypoxia (09/16/17) Right upper quadrant pain (09/16/17) Physical Therapy Treatment Note M2 PT-IP Current Condition Start: 09/19/17 11:31 Freq: NEEDED Status: Active Protocol: Document 09/19/17 11:31 AB (Rec: 09/19/17 11:59 AB [id number]) Physical Therapy Current Condition Current Condition Evaluation Date 09/19/17 Treatment Diagnosis COPD exacerbation Onset Date 09/16/17 Precautions Other Precautions O2 sat M3 PT-IP Subjective Start: 09/19/17 11:31 Freq: NEEDED Status: Active Protocol: Document 09/20/17 11:15 RCC (Rec: 09/20/17 11:31 RCC [id number]) Subjective Physical Therapy Visit Type Type Patient Refusal Physical Therapy Visit Comments Patient Comments Pt and family in room. Pt is ready to go home. Respectfully declined therapy services today, and family agrees to same. Family reports they will be with her to assist, and also assist with getting into home today, refusing respectfully to attempt stairs with PT today.
[2017-09-20] MEDS: POLYETHYLENE GLYCOL 3350 17 GM POWD.PACK PO (11:38)
--- NOTE | 2017-09-20 11:41 | CM.DPC ---
DCP: continued: EMR reviewed and spoke with Dr. Dacosta, PT Joel and RN Alberto. All noted that pt was eager for d/c home today. Joel reports no concerns re the home d/c from a therapy standpoint. [employer] Consultant Francy did see pt in followup to her mental health and nursing home care options and gave resources. Checked in with pt. She reports she is very glad to be going home today and has called her niece so that she can be here when it's time to go over the d/c instructions.
== END 2017-09-20 11:55 | disposition home or self-care (01) | DRG 189 ==
LOC: ED 09-16 01:11 → ICU 09-16 01:54 → AC 09-18 11:49
PROVIDERS: Admitting Provider Family Medicine; Emergency Provider Emergency Medicine; PCP Family Medicine; Visit Provider Family Medicine
DX: J96.01 Acute respiratory failure with hypoxia (principal); J44.1 Chronic obstructive pulmonary disease with (acute) exacerbation; B02.29 Other postherpetic nervous system involvement; R19.01 Right upper quadrant abdominal swelling, mass and lump; E03.9 Hypothyroidism, unspecified; F41.9 Anxiety disorder, unspecified; F32.9 Major depressive disorder, single episode, unspecified; E78.5 Hyperlipidemia, unspecified; Z87.891 Personal history of nicotine dependence; Z99.81 Dependence on supplemental oxygen
CPT/HCPCS: 36415; 36591; 36600; 71045; 74018; 80048; 81001; 81003; 82550; 82553; 82805; 83605; 83735; 83880; 84145; 84484; 85025; 87040; 87797; 94150; 94640; 94660; 94760; 94762; 96365; 96366; 96375; 97116; 97162; 97530; 99222; 99232; 99238; 99283; 99285; 99406; J1650; J1956; J2930; J7050; J7613

== ENCOUNTER → 2017-10-22 11:05 | Outpatient (CLI) | payer MEDICARE, BC, SELFPAY ==
[2017-09-16 00:27] VITALS: PULSE 110; RESP 15; O2SAT 100
[2017-09-16 01:58] VITALS: BMI 19.1
--- NOTE | 2017-10-24 16:01 | PM.PFT.1 ---
Pulmonary Function Test Referral & Results Date Patient Seen: 10/22/17 Requesting provider: Estrellita Pyle Indication: Shortness of breath Results: The spirometry demonstrates an FVC of 1.54 L which is 49% of predicted. The FEV1 was measured at 0.58 L which is 24% of predicted. The FEV1/FVC ratio was 37 which is 49% of predicted. Following the administration of bronchodilator there was no appreciable change. Lung volumes show an SVC of 1.67 L which is 56% of predicted. No diffusing capacity was performed The maximum voluntary ventilation was severely reduced. Interpretation: This study demonstrates severe obstructive lung disease with an FEV1 of only 0.58 L. There is no evidence of benefit following the administration of bronchodilator There is also moderately severe restrictive lung disease present.
== END ==
PROVIDERS: PCP Family Medicine; Visit Provider Internal Medicine Critical Care Medicine
DX: R06.02 Shortness of breath (principal)
CPT/HCPCS: 94010; 94060; 94726

== ENCOUNTER → 2017-10-22 14:27 | Outpatient (CLI) | payer MEDICARE, BC, SELFPAY ==
[2017-09-16 00:27] VITALS: PULSE 110; RESP 15; O2SAT 100
[2017-09-16 01:58] VITALS: BMI 19.1
--- NOTE | 2017-10-22 14:30 | DI.RAD.S_ITS ---
PROCEDURE: XR CHEST 2V INDICATIONS: needed for pulmonary appt tomorrow TECHNIQUE: 2 views of the chest were acquired. COMPARISON: [facility], CR, XR CHEST 1V, 09/16/2017, 1:11. [facility], CR, CHEST 2 VIEW, 05/09/2017, 18:09. [facility], CR, CHEST 2 VIEW, 04/17/2017, 15:12. FINDINGS: Surgical changes and devices: None. Lungs and pleura: No pleural effusions or pneumothorax. Lungs are abnormal, with large lung volumes bilaterally but no pneumonia or neoplasm is found.. Mediastinum: Mediastinal contours are normal. Heart size is normal. Bones and chest wall: No suspicious bony abnormalities. Soft tissues appear unremarkable. IMPRESSION: Severe COPD but no acute disease. Dictated by: Adrian Burden M.D. on 10/22/2017 at 15:07 Approved by: Adrian Burden M.D. on 10/22/2017 at 15:08
== END ==
PROVIDERS: PCP Family Medicine; Visit Provider Family Medicine
DX: J44.9 Chronic obstructive pulmonary disease, unspecified (principal)
CPT/HCPCS: 71046; 94010; 94060; 94726

== ENCOUNTER 2017-10-31 19:39 | Emergency (ER) | payer MEDICARE, BC, SELFPAY ==
[2017-09-16 00:27] VITALS: PULSE 110; RESP 15; O2SAT 100
[2017-09-16 01:58] VITALS: BMI 19.1
--- NOTE | 2017-10-31 19:49 | ED.SOB ---
HPI - SOB/Dyspnea General Chief Complaint: Shortness of Breath/Dyspnea Stated Complaint: COPD Time Seen by Provider: 10/31/17 19:47 Source: patient and EMS Mode of arrival: EMS Limitations: no limitations History of Present Illness 72-year-old female presents by EMS with chief complaint of increasing shortness of breath which has by and large been present since a prolonged hospitalization in the beginning of September. Over the course of the day she has had increasing shortness of breath and has had to increase her home oxygen from its base of 2 L. she has been sleeping upwards of 15-16 hours per day. She got out of bed to go to the bathroom and became very short of breath her pulse ox dropped to the 60s. At that point she called for EMS. She was seen by a marketing automation manager in [facility], [place] and had a positive sputum culture and was referred to infectious disease. MD Complaint: shortness of breath Related Data Home Medications Medication Instructions Recorded Confirmed cyanocobalamin (vit B-12) 2,500 2,500 mcg SL DAILY 10/08/17 10/08/17 mcg sublingual tablet umeclidinium 62.5 mcg-vilanterol 1 inhalation INHALATION Q24H 10/27/17 10/27/17 25 mcg/actuation powdr for inhalation Previous Rx's Medication Instructions Recorded ipratropium-albuterol 3 ml INH Q6H PRN #90 u 04/22/17 budesonide 0.5 mg IH BID #1 box 05/26/17 fluticasone-salmeterol [Advair 1 puff INH BID #14 dose 06/06/17 Diskus] lovastatin 20 mg PO HS #90 tab 07/11/17 levothyroxine 150 mcg tablet 150 mcg PO QAM #30 tab 08/15/17 hydrocodone 5 mg-acetaminophen 325 See Label Instructions PO Q6HP PRN 09/01/17 mg tablet #45 tab lidocaine 2 % mucosal solution 10 ml MM Q4H #15 ml 09/23/17 alprazolam 0.5 mg tablet 0.5 mg PO BID PRN #30 tab 10/08/17 gabapentin 400 mg capsule 800 mg PO BEDTIME PRN #60 cap 10/08/17 omeprazole 20 mg capsule,delayed 20 mg PO DAILY #30 cap 10/20/17 release prednisone 20 mg tablet See Label Instructions PO DAILY 10/20/17 #30 tab fluoxetine 60 mg tablet 60 mg PO DAILY #30 tab 10/27/17 Allergies Allergy/AdvReac Type Severity Reaction Status Date / Time Penicillins [PENICILLINS] Allergy Unknown Verified 10/27/17 14:06 Review of Systems Review of Systems All systems reviewed & are unremarkable except as noted in HPI and below Constitutional Denies chills, Denies fever(s), Denies lethargy and Denies weakness Eyes Denies change in vision, Denies eye discharge, Denies irritation and Denies loss of vision ENT Ears, Nose, Mouth, and Throat: Denies change in voice, Denies neck pain and Denies sore throat Cardiovascular Denies chest pain, Denies irregular heart rhythm, Denies lightheadedness, Denies palpitations, Reports dyspnea, Reports dyspnea on exertion and Denies orthopnea Respiratory Reports cough, Reports dyspnea, Reports dyspnea on exertion and Reports wheezing Gastrointestinal Gastrointestinal: Denies abdominal pain, Denies change in bowel habits, Denies diarrhea, Denies nausea and Denies vomiting Genitourinary Denies hematuria, Denies flank pain, Denies urinary incontinence and Denies urinary urgency Musculoskeletal Denies neck pain Integumentary/Breasts Denies pruritus, Denies erythema, Denies rash and Denies wounds Neurologic Denies confusion, Denies loss of vision and Denies weakness Psychiatric Denies anxiety, Denies confusion, Denies depression, Denies homicidal ideation and Denies suicidal ideation Endocrine Denies palpitations Hematologic/Lymphatic Denies easy bruising Allergic/Immunologic Reports wheezing PFSH Social History household members: none pets and animals: No education level: high school occupational status: other viv/restorationism: Confucianist seatbelt use: always working smoke detector in home: Yes fire extinguisher in home: No carbon monox detector in home: Yes firearms in home: No Smoking Status: Former smoker Tobacco: How many years used: 50 quit status: quit date established alcohol intake: current during the past year weight has: increased > 10 lbs well-balanced diet: about half the time daily servings fruits/ve-1 caffeine: Yes (1-2 caffeine drinks per day) eating out: 1-3 times/week Exam Narrative Exam Narrative: 72-year-old female appears generally unwell, in obvious distress Initial Vital Signs Initial Vital Signs: Vital Signs Temperature 97.6 F 10/31/17 20:02 Pulse Rate 130 H 10/31/17 20:02 Respiratory Rate 28 H 10/31/17 20:02 Blood Pressure 116/80 10/31/17 20:02 Pulse Oximetry 94 10/31/17 20:02 Const General: cooperative, well developed and acute distress Nutritional Appearance: thin Orientation: alert, awake, oriented x3 and not confused [facility] Head: normocephalic and atraumatic Ears: external ears normal and TM's normal bilaterally Nose: external nose normal and No nasal discharge Face and sinus: sinuses nontender, face symmetric, no sinus tenderness and No dry mucous membranes Mouth: oral mucosae normal and moist mucous membranes Teeth and gingiva: dentition normal Throat: tonsils normal and uvula midline Eyes General: appearance normal, both eyes and all related structures Eyelids: eyelids normal Conjunctivae: conjunctivae normal Sclera: sclerae normal Pupils: PERRL EOM: EOM intact bilaterally Resp Effort & Inspection: abnormal respiratory pattern, audible wheezes, cough, labored, nasal flaring, respiratory distress and uses accessory muscles Auscultation: diminished lung sounds and wheezes Cardio Rate: tachycardic Rhythm: regular rhythm GI Inspection: non-distended Palpation: soft, no hepatosplenomegaly, No guarding, No pulsatile mass and No tender Auscultation: normal bowel sounds Back/Spine/Pelvis Back: No CVA tenderness Cervical Spine: cervical ROM normal and No pain with cervical ROM Thoracic/Lumbar Spine: thoracic and lumbar spine normal to inspection Neuro General: alert, oriented x3, gait normal and no focal motor deficits Speech: speech normal Course Orders Ordered: ED Orders 10/31/17 19:30 B Type Natriuretic Peptide Stat Basic Metabolic Panel Stat Complete Blood Count AUTO DIFF Stat Magnesium Stat Procalcitonin Stat Troponin & CK Cardiac Panel Stat 10/31/17 19:47 Arterial Blood Gas Stat 10/31/17 19:48 Consult to Respiratory Therapy Evaluate & Treat Blood Culture Stat EKG-12 Lead Stat 10/31/17 20:17 CT angio chest PE protocol Stat 10/31/17 20:20 Lactate (Lactic Acid) Stat 10/31/17 20:56 Arterial Blood Gas Routine 11/01/17 00:40 Lactate 4HR (Lactic Acid Rflx) Stat Discontinued Medications Albuterol/Ipratropium (Duoneb) 3 ml INH NOW ONE Stop: 10/31/17 19:48 Last Admin: 10/31/17 20:22 Dose: 3 ml Enoxaparin Sodium (Lovenox) 55 mg 1 mg/kg (55 mg) SUBCUT NOW ONE Stop: 10/31/17 21:51 Last Admin: 10/31/17 22:00 Dose: 55 mg Piperacillin/Tazobactam/Dextrose (Zosyn) 3.375 gm in 50 mls @ 100 mls/hr IV NOW ONE Stop: 10/31/17 22:28 Last Admin: 11/01/17 00:11 Dose: Cefepime HCl 2 gm/ Sodium (Chloride) 100 mls @ 200 mls/hr IV NOW ONE Stop: 10/31/17 22:11 Last Infusion: 10/31/17 23:05 Dose: 200 mls/hr Admin: 10/31/17 22:33 Dose: 200 mls/hr Methylprednisolone (Solu-Medrol 125 Mg Vial) 125 mg IV NOW ONE Stop: 10/31/17 19:48 Last Admin: 10/31/17 20:36 Dose: 125 mg Reevaluation(s) Reevaluation #1: ABG performed on 3 L by nasal cannula with FiO2 of 30%. PO2 is 47 with sats of 82%. Her A a gradient is 106. Baseline pulse ox on 2 L is 92-94%. She is currently requiring 5 L to achieve this Consultations Consultation #1: call to [facility], no available beds Sputum Cx from [facility] shows pseudomonas susceptible to amikacin, cefepime, ceftazidime, gentamicin, meropenem, PIPtaz, tobramycin Patient has a listed allergy to penicillin but states she has never taken it since she was a little kid and does not know what her allergy was, but states she does not remember any significant trouble breathing or throat complaints Consultation #2: Dr. Hoff (ICU) at [facility] accepts patient onto his service Vital Signs - 8 hr 10/31/17 20:02 10/31/17 21:07 10/31/17 21:42 Temperature 97.6 F 97.6 F Pulse Rate 130 H 121 H 121 H Respiratory Rate 28 H 23 23 Blood Pressure 116/80 116/80 Blood Pressure [Left Arm] 104/71 Pulse Oximetry 94 95 95 10/31/17 22:44 10/31/17 23:11 11/01/17 00:24 Temperature Pulse Rate 116 H 121 H 104 H Respiratory Rate 23 18 26 H Blood Pressure Blood Pressure [Left Arm] 98/72 100/70 101/68 Pulse Oximetry 97 95 99 MDM - SOB/Dyspnea Medical Records Attestation: I reviewed the patient's medical records. Lab Data Result diagrams: 10/31/17 19:30 10/31/17 19:30 Lab Results 10/31/17 10/31/17 10/31/17 Range/Units 19:30 19:30 19:30 WBC 19.4 H (4.5-11.0) X10^3/uL RBC 4.12 (4.0-5.2) X10^6/uL Hgb 12.6 (12.0-16.0) g/dL Hct 38.2 (36-46) % MCV 92.9 (80-100) fL MCH 30.5 (26-34) PG MCHC 32.9 (30-36) % RDW 14.6 (11.6-14.8) % Plt Count 223 (150-400) X10^3/uL Neut % (Auto) 89.3 H (50-75) % Lymph % (Auto) 8.3 L (25-40) % Bertie % (Auto) 2.0 L (3-14) % Eos % (Auto) 0.1 L (2-4) % Baso % (Auto) 0.3 (0-2) % Neut # (Auto) 71050 H (3761-0133) /uL ABG pH (7.35-7.45) ABG pCO2 (35-45) mmHg ABG pO2 (80-105) mmHg ABG HCO3 (23-27) mmol/L ABG Total CO2 (23-27) mmol/L ABG O2 Saturation (95-100) % ABG Base Excess (-2-3) mmol/L FiO2 Sodium 136 L (137-145) mmol/L Potassium 4.5 (3.4-5.1) mmol/L Chloride 97 L (98-107) mmol/L Carbon Dioxide 32 (22-32) mmol/L BUN 16 (7-17) mg/dL Creatinine 0.80 (0.52-1.04) mg/dL Estimated GFR > 60.0 (>60) mL/min BUN/Creatinine Ratio 20.0 (6-22) Glucose 221 H (80-110) mg/dL Lactate (0.7-2.1) mmol/L Calcium 9.2 (8.4-10.2) mg/dL Magnesium 2.0 (1.6-2.3) mg/dL Total Creatine Kinase 24 L (30-135) U/L Troponin I 0.018 (0.01-0.034) ng/mL B-Natriuretic Peptide 45.2 (<100) Procalcitonin < 0.05 (<0.5) ng/mL 10/31/17 10/31/17 11/01/17 Range/Units 20:20 20:56 00:40 WBC (4.5-11.0) X10^3/uL RBC (4.0-5.2) X10^6/uL Hgb (12.0-16.0) g/dL Hct (36-46) % MCV (80-100) fL MCH (26-34) PG MCHC (30-36) % RDW (11.6-14.8) % Plt Count (150-400) X10^3/uL Neut % (Auto) (50-75) % Lymph % (Auto) (25-40) % Bertie % (Auto) (3-14) % Eos % (Auto) (2-4) % Baso % (Auto) (0-2) % Neut # (Auto) (4686-6812) /uL ABG pH 7.41 (7.35-7.45) ABG pCO2 48.4 H (35-45) mmHg ABG pO2 47 L* (80-105) mmHg ABG HCO3 31 H (23-27) mmol/L ABG Total CO2 32 H (23-27) mmol/L ABG O2 Saturation 82 L* (95-100) % ABG Base Excess 6.0 H (-2-3) mmol/L FiO2 3 Sodium (137-145) mmol/L Potassium (3.4-5.1) mmol/L Chloride (98-107) mmol/L Carbon Dioxide (22-32) mmol/L BUN (7-17) mg/dL Creatinine (0.52-1.04) mg/dL Estimated GFR (>60) mL/min BUN/Creatinine Ratio (6-22) Glucose (80-110) mg/dL Lactate 2.9 H 1.9 (0.7-2.1) mmol/L Calcium (8.4-10.2) mg/dL Magnesium (1.6-2.3) mg/dL Total Creatine Kinase (30-135) U/L Troponin I (0.01-0.034) ng/mL B-Natriuretic Peptide (<100) Procalcitonin (<0.5) ng/mL Imaging Data CT scan - chest: Radiologist's impression: PROCEDURE: CT ANGIO CHEST PE PROTOCOL INDICATIONS: severe SHORTNESS OF BREATH, recent hospitalization TECHNIQUE: After the administration of intravenous contrast, 2 mm thick sections acquired from the pulmonary apices to the posterior costophrenic angles. 3-dimensional maximum intensity projection (MIP) coronal and sagittal reformats were then acquired through the thorax. For radiation dose reduction, the following was used: automated exposure control, adjustment of mA and/or kV according to patient size. COMPARISON: [facility], CR, XR CHEST 2V, 10/22/2017, 14:28. [facility], CT, CHEST/ABD/PEL WITH CONTRAST, 07/10/2017, 12:55. FINDINGS: Image quality: Excellent. Pulmonary arteries: Pulmonary arteries demonstrate a saddle embolus extending from the distal aspect of the right mainstem pulmonary artery to the distal aspect of the left main pulmonary artery. Prominent emboli are also noted in the segmental branches extending into all lobes, although predominantly in the lower lobes. There is no definitive visualized right heart strain. The main pulmonary artery measures approximately 30 mm borderline for enlargement. Lungs and pleura: Chronic interstitial changes as well as hyperexpansion related to COPD/emphysematous change are present within the lungs bilaterally. Prominent bronchiectasis is present. There scattered areas of nodularity, stable compared to prior exam. In interval since the prior exam, there are 2 cavitary foci within the left lower lobe, the largest measuring 11 mm. Mediastinum: Heart size is normal, without pericardial effusion. No mediastinal or hilar adenopathy. Thoracic aorta is normal in caliber and enhancement. Esophagus is normal in caliber, without hiatal hernia. Bones and chest wall: No suspicious bony lesions. Ribs and thoracic spine appear intact throughout. Thyroid gland is unremarkable. No axillary or supraclavicular adenopathy. Abdomen: Visualized upper abdominal solid organs appear normal in the early arterial phase of enhancement. IMPRESSION: 1. Saddle embolus with significant pulmonary emboli as above. 2. Cavitary foci within the left lower lobe. There are new compared to prior exam of 07/10/17. These are suspected to be related to infection or inflammation. Septic emboli should also be considered. The above findings were discussed with Dr. Luis Issa on 10/31/17 at 9:39 PM. Dictated by: Karis Herrera M.D. on 10/31/2017 at 21:36 Approved by: Karis Herrera M.D. on 10/31/2017 at 21:43 Critical Care Time Critical Care Time: Yes Total Critical Care Time: 40 Attestation: The high probability of a clinically significant, sudden or life threatening deterioration of the [cardiovascular] system(s) required my full and direct attention, intervention and personal management. The aggregate critical care time was [40] minutes. This time is in addition to time spent performing reported procedures but includes the following: [x] Data Review and interpretation [x] Patient assessment and monitoring of vital signs [x] Documentation [x] Medication orders and management Discharge Plan Departure Patient Disposition: [facility] Clinical Impression: Acute saddle pulmonary embolism, Acute and chronic respiratory failure with hypoxia, Acute exacerbation of chronic obstructive pulmonary disease (COPD), Acute pneumonia Prescriptions: No Action ipratropium-albuterol 3 ML solution for nebulization 3 ml INH Q6H PRNQty: 90 RF: 1 budesonide 1 MG/2 ML suspension for nebulization 0.5 mg IH BID Qty: 1 RF: 2 fluticasone-salmeterol [Advair Diskus] 250 MCG/50 MCG blister with device 1 puff INH BID Qty: 14 RF: 11 lovastatin 20 MG tablet 20 mg PO HS Qty: 90 RF: 2 hydrocodone-acetaminophen 5-325 mg tablet See Label Instructions PO Q6HP PRN (Reason: pain) Qty: 45 RF: 0 lidocaine HCl [Lidocaine Viscous] 2 % solution 10 ml MM Q4H Qty: 15 RF: 0 omeprazole 20 mg capsule,delayed release(DR/EC) 20 mg PO DAILY Qty: 30 RF: 5 prednisone 20 mg tablet See Label Instructions PO DAILY Qty: 30 RF: 0 levothyroxine 150 mcg tablet 150 mcg PO QAM Qty: 30 RF: 3 umeclidinium-vilanterol 62.5-25 mcg/actuation blister with device 1 inhalation INHALATION Q24H RF: 0 fluoxetine 60 mg tablet 60 mg PO DAILY Qty: 30 RF: 3 cyanocobalamin (vitamin B-12) [Vitamin B-12] 2,500 mcg tablet, sublingual 2,500 mcg SL DAILY RF: 0 alprazolam 0.5 mg tablet 0.5 mg PO BID PRN (Reason: anxiety) Qty: 30 RF: 0 gabapentin [Neurontin] 400 mg capsule 800 mg PO BEDTIME PRN (Reason: pain) Qty: 60 RF: 0
[2017-10-31 20:02] VITALS: BP 116/80; PULSE 130; RESP 28; TEMP 36.4; O2SAT 94
[2017-10-31 20:07] LABS: Add Manual Diff / Slide Review NO; Basophils Percent Auto 0.3 % (0-2); Eosinophils Percent Auto 0.1 % (2-4); Hematocrit 38.2 % (36-46); Hemoglobin 12.6 g/dL (12.0-16.0); Lymphocytes Percent Auto 8.3 % (25-40); Mean Corpuscular HGB Conc 32.9 % (30-36); Mean Corpuscular Hemoglobin 30.5 PG (26-34); Mean Corpuscular Volume 92.9 fL (80-100); Neutrophils Absolute Auto 17300 /uL (3000-5900); Neutrophils Percent Auto 89.3 % (50-75); Platelet Count 223 X10^3/uL (150-400); Red Blood Cell Count 4.12 X10^6/uL (4.0-5.2); Red Cell Distribution Width 14.6 % (11.6-14.8); White Blood Cell Count 19.4 X10^3/uL (4.5-11.0)
[2017-10-31 20:10] LABS: Blood Urea Nitrogen 16 mg/dL (7-17); Calcium 9.2 mg/dL (8.4-10.2); Carbon Dioxide 32 mmol/L (22-32); Chloride 97 mmol/L (98-107); Creatine Kinase 24 U/L (30-135); Estimated Glomerular Filt Rate > 60.0 mL/min (>60); Glucose 221 mg/dL (80-110); HEMOLYSIS 41 (0-50); Potassium 4.5 mmol/L (3.4-5.1); Sodium 136 mmol/L (137-145)
--- NOTE | 2017-10-31 20:17 | DI.CT.S_ITS ---
PROCEDURE: CT ANGIO CHEST PE PROTOCOL INDICATIONS: severe SHORTNESS OF BREATH, recent hospitalization TECHNIQUE: After the administration of intravenous contrast, 2 mm thick sections acquired from the pulmonary apices to the posterior costophrenic angles. 3-dimensional maximum intensity projection (MIP) coronal and sagittal reformats were then acquired through the thorax. For radiation dose reduction, the following was used: automated exposure control, adjustment of mA and/or kV according to patient size. COMPARISON: [facility], CR, XR CHEST 2V, 10/22/2017, 14:28. [facility], CT, CHEST/ABD/PEL WITH CONTRAST, 07/10/2017, 12:55. FINDINGS: Image quality: Excellent. Pulmonary arteries: Pulmonary arteries demonstrate a saddle embolus extending from the distal aspect of the right mainstem pulmonary artery to the distal aspect of the left main pulmonary artery. Prominent emboli are also noted in the segmental branches extending into all lobes, although predominantly in the lower lobes. There is no definitive visualized right heart strain. The main pulmonary artery measures approximately 30 mm borderline for enlargement. Lungs and pleura: Chronic interstitial changes as well as hyperexpansion related to COPD/emphysematous change are present within the lungs bilaterally. Prominent bronchiectasis is present. There scattered areas of nodularity, stable compared to prior exam. In interval since the prior exam, there are 2 cavitary foci within the left lower lobe, the largest measuring 11 mm. Mediastinum: Heart size is normal, without pericardial effusion. No mediastinal or hilar adenopathy. Thoracic aorta is normal in caliber and enhancement. Esophagus is normal in caliber, without hiatal hernia. Bones and chest wall: No suspicious bony lesions. Ribs and thoracic spine appear intact throughout. Thyroid gland is unremarkable. No axillary or supraclavicular adenopathy. Abdomen: Visualized upper abdominal solid organs appear normal in the early arterial phase of enhancement. IMPRESSION: 1. Saddle embolus with significant pulmonary emboli as above. 2. Cavitary foci within the left lower lobe. There are new compared to prior exam of 07/10/17. These are suspected to be related to infection or inflammation. Septic emboli should also be considered. The above findings were discussed with Dr. Luis Issa on 10/31/17 at 9:39 PM. Dictated by: Karis Herrera M.D. on 10/31/2017 at 21:36 Approved by: Karis Herrera M.D. on 10/31/2017 at 21:43
[2017-10-31 20:22] LABS: Troponin I 0.018 ng/mL (0.01-0.034)
[2017-10-31] MEDS: ALBUTEROL/IPRATROPIUM 3 ML AMPUL INH (20:22)
--- NOTE | 2017-10-31 20:22 | RT ---
Pt. in moderate distress with poor bibasilar air entry. Duoneb via mouthpiece. Pt. juanita. well. speaking in full sentences. Turned NC o2 down from 5lpm to 2lpm for 97% spo2. ABG pending.
[2017-10-31 20:25] LABS: B Type Natriuretic Peptide 45.2 (<100)
[2017-10-31] MEDS: methylPREDNISolone 125 MG/2 ML VIAL IV (20:36)
[2017-10-31 20:37] LABS: Lactate (Lactic Acid) 2.9 mmol/L (0.7-2.1)
[2017-10-31 20:41] LABS: Procalcitonin < 0.05 ng/mL (<0.5)
[2017-10-31 21:07] VITALS: BP 104/71; PULSE 121; RESP 23; O2SAT 95
[2017-10-31 21:10] LABS: PCO2 ABG 48.4 mmHg (35-45); pH ABG 7.41 (7.35-7.45)
[2017-10-31 21:11] LABS: HCO3 ABG 31 mmol/L (23-27); PO2 ABG 47 mmHg (80-105)
[2017-10-31 21:12] LABS: Fractionated Inspired Oxygen 3; Oxygen Saturation ABG 82 % (95-100); TCO2 ABG 32 mmol/L (23-27)
--- NOTE | 2017-10-31 21:13 | RT ---
Abg performed on 3lpm./ Results given to Dr. Issa. Increased o2 flow to 6lpm
[2017-10-31 21:42] VITALS: BP 116/80; PULSE 121; RESP 23; TEMP 36.4; O2SAT 95
[2017-10-31] MEDS: ENOXAPARIN 40 MG/0.4 ML SYRINGE 55 MG SUBCUT (22:00)
[2017-10-31] MEDS: CEFEPIME 2 GM in SODIUM CHLORIDE 0.9% 100 ML 200 ML IV (22:33)
[2017-10-31 22:44] VITALS: BP 98/72; PULSE 116; RESP 23; O2SAT 97
[2017-10-31 23:11] VITALS: BP 100/70; PULSE 121; RESP 18; O2SAT 95
[2017-11-01 00:24] VITALS: BP 101/68; PULSE 104; RESP 26; O2SAT 99
[2017-11-01 00:25] LABS: Reflexed Lactate in 2 Hours Y
[2017-11-01 00:58] LABS: Lactate 2HR (Lactic Acid Rflx) 1.9 mmol/L (0.7-2.1)
[2017-11-01 02:16] VITALS: BP 100/74; PULSE 84; RESP 28; O2SAT 97
== END 2017-11-01 02:00 | disposition short-term general hospital (02) ==
PROVIDERS: Emergency Provider Emergency Medicine; PCP Family Medicine
DX: I26.92 Saddle embolus of pulmonary artery without acute cor pulmonale (principal); J96.21 Acute and chronic respiratory failure with hypoxia; J44.1 Chronic obstructive pulmonary disease with (acute) exacerbation; J18.9 Pneumonia, unspecified organism
CPT/HCPCS: 36415; 36591; 36600; 71275; 80048; 82550; 82553; 82805; 83605; 83735; 83880; 84145; 84484; 85025; 87040; 93005; 96372; 96374; 96375; 99283; 99285; J0692; J1650; J2930; Q9967